=== PATIENT | male | born 1960 | race Caucasian/White ===

== ENCOUNTER 2022-09-29 09:22 | Day surgery (SDC) | payer OTHER ==
[~2022-09-29] VITALS: Ht 188 cm; Wt 96.1 kg
[2022-09-29] MEDS ORDERED: TRAZ50 (09:37)
--- NOTE | 2022-09-29 17:01 | NUR ---
09/29/22 Rafael Carney WHEN HOOKED UP TO EKG LEADS, PRIOR TO THE PROCEDURE, PT WAS FOUND TO BE IN A-FIB. DR SANABRIA WAS CONSULTED AND REMAINED PRESENT THROUGHOUT THE PROCEDURE ADMINSTERING MEDICATION FOR SEDATION.
== END 2022-09-29 12:46 | disposition home or self-care (01) ==
LOC: ORSCSDS 09:22
PROVIDERS: Internal Medicine Gastroenterology
PROC: 0DBL8ZX Excision of Transverse Colon, Via Natural or Artificial Opening Endoscopic, Diagnostic (ICD-10-PCS; principal; 2022-09-29 10:45)
PROC: 0DBK8ZX Excision of Ascending Colon, Via Natural or Artificial Opening Endoscopic, Diagnostic (ICD-10-PCS; principal; 2022-09-29 10:45)
PROC: 0DBM8ZX Excision of Descending Colon, Via Natural or Artificial Opening Endoscopic, Diagnostic (ICD-10-PCS; principal; 2022-09-29 10:45)
DX: Z12.11 Encounter for screening for malignant neoplasm of colon (principal); D12.2 Benign neoplasm of ascending colon; D12.3 Benign neoplasm of transverse colon; D12.4 Benign neoplasm of descending colon; K57.30 Diverticulosis of large intestine without perforation or abscess without bleeding; K64.4 Residual hemorrhoidal skin tags; I48.0 Paroxysmal atrial fibrillation
CPT/HCPCS: 88305; 93005; 93010; J2250; J2370; J2704; J7120

== ENCOUNTER 2023-05-08 05:51 | Day surgery (SDC) | payer OTHER ==
[~2023-05-08 05:51] MED LIST: ALDACTONE25 MG PO; Amiodarone HCl200 MG PO; DIGOX125 MC1 PO; DIGOX250 MCG PO; ELIQUIS5 M2 PO; ENTRESTO 24 MG1 EACH PO; FURO20 PO; K-TAB ER20 ME1 PO; METO25ER PO; TRAZ50 PO
[2023-05-08 06:37] VITALS: BP 119/86
[2023-05-08 06:45] VITALS: BP 127/80
[2023-05-08 07:00] VITALS: BP 138/95
[2023-05-08 07:24] VITALS: BP 122/81
[2023-05-08 07:27] VITALS: BP 125/78
--- NOTE | 2023-05-08 07:28 | NUR ---
PT AWAKE AND VERBALIZING WELL. SB 45-55BPM. IV REMOVED. PT AND VERBALIZED UNDERSTANDING OF WRITTEN AND VERBAL D/C INST.
== END 2023-05-08 11:09 | disposition home or self-care (01) ==
LOC: MHTC 05:51
DX: I48.19 Other persistent atrial fibrillation (principal); I50.20 Unspecified systolic (congestive) heart failure; I11.0 Hypertensive heart disease with heart failure; I50.22 Chronic systolic (congestive) heart failure; I51.3 Intracardiac thrombosis, not elsewhere classified; Z86.16 Personal history of COVID-19; E78.5 Hyperlipidemia, unspecified; D69.6 Thrombocytopenia, unspecified
CPT/HCPCS: 92960; 93005; 93010; J2704; J7030

== ENCOUNTER 2023-06-12 21:48 | Inpatient (IN) | payer OTHER ==
[~2023-06-12] VITALS: Ht 188 cm; Wt 88.6 kg
[~2023-06-12 21:48] MED LIST changes: +TRAZ150T57 PO; -TRAZ50 PO
[2023-06-12] MEDS ORDERED: ENTRESTO 24 MG1 EAC3 PO (22:26)
[2023-06-12] MEDS ORDERED: FARXIGA10 MG PO (22:26)
[2023-06-12 22:28] LABS: BASOPHILS ABSOLUTE AUTO 0.04 K/mm3 (0.00-0.23); BASOPHILS PERCENT AUTO 1 % (0-2); EOSINOPHILS ABSOLUTE AUTO 0.12 K/mm3 (0.00-0.68); EOSINOPHILS PERCENT AUTO 2 % (0-6); Hematocrit 42.5 % (37.0-53.0); Hemoglobin 14.6 g/dL (13.5-17.5); IMMATURE GRAN ABSOLUTE AUTO 0.03 K/mm3 (0.00-0.10); IMMATURE GRAN PERCENT AUTO 0 % (0-1); LYMPHOCYTES PERCENT AUTO 19 % (21-46); MONOCYTES ABSOLUTE AUTO 0.71 K/mm3 (0.16-1.47); MONOCYTES PERCENT AUTO 11 % (4-13); Mean Corpuscular HGB 30.8 pg (26.0-34.0); Mean Corpuscular HGB Conc 34.4 g/dL (31.5-36.5); Mean Corpuscular Volume 90 fL (80-100); Mean Platelet Volume 10.6 fL (9.1-12.4); NEUTROPHILS ABSOLUTE AUTO 4.56 K/mm3 (1.96-9.15); NEUTROPHILS PERCENT AUTO 68 % (41-73); Platelet Count 170 K/mm3 (150-400); RDW Coefficient Variation 12.6 % (11.7-14.2); RDW Standard Deviation 41.5 fL (35.1-46.3); Red Blood Cell Count 4.74 M/mm3 (4.30-5.90); White Blood Cell Count 6.76 K/mm3 (4.00-11.30)
[2023-06-12 22:44] LABS: Albumin, Blood 3.7 g/dL (3.4-5.0); Albumin/Globulin Ratio 1.1 (0.8-1.8); Bilirubin, Total 0.4 mg/dL (0.1-1.0); Bun/Creatinine Ratio 17.8 (12.0-20.0); Calcium, Blood 8.6 mg/dL (8.5-10.1); Creatinine, Blood 1.07 mg/dL (0.60-1.20); Globulin, Blood 3.4 g/dL (2.2-4.0); Total Protein, Blood 7.1 g/dL (6.4-8.2)
[2023-06-13] VITALS (19 sets, daily range): BP systolic 116–153; BP diastolic 72–96
[2023-06-13] MEDS ORDERED: AMIODARONE HCL100 M1 PO (02:12)
[2023-06-13] MEDS ORDERED: ENTRESTO 24 MG1 EACH PO (02:15)
--- NOTE | 2023-06-13 03:37 | NUR ---
ADMIT NOTE ADMITTED 62 YR OLD MALE FROM THE ED WITH DX OF CHOLECYSTITIS. NPO FOR POSSIBLE CHOLECYSTECTOMY IN THE AM. ALERT AND ORIENTED X 4. HAD RECEIVED DILAUDID IN THE ED, RECEIVED ANOTHER DOSE WHEN HE CAME TO THE FLOOR. UP AD LASHA. IVF OF NS INFUSING, ANTIBIOTICS SCHEDULED - SEE MAR FOR DETAILS. ORIENTED TO USE OF CALL LIGHT. WILL CONTINUE TO MONITOR
--- NOTE | 2023-06-13 03:50 | NUR ---
SCENE PAINTER SUMMARY BP ELEVATED, OTHERWISE VSS. WAS ADMITTED THIS SHIFT WITH DX OF CHOLECYSTITIS. NPO FOR POSSIBLE CHOLECYSTECTOMY IN THE AM. RECEIVING IV DILAUDID FOR PAIN AND ZOFRAN FOR NAUSEA. SEE MAR FOR DETAILS. IVF OF NS INFUSING WITH ANTIBIOTICS ABOUT LARISSA 6 HRS. CURRENTLY RESTING QUIETLY, UP AD LASHA NEEDED. ORIENTED TO USE OF CALL LIGHT, CALL LIGHT IN REACH. WILL CONTINUE TO MONITOR
[2023-06-13] MEDS ORDERED: DIGOX125 MC1 PO (04:24)
[2023-06-13] MEDS ORDERED: FUROSEMIDE40 MG PO (04:25)
[2023-06-13] MEDS ORDERED: METOPROLOL SUCC25 MG PO (04:25)
[2023-06-13 04:56] LABS: BASOPHILS ABSOLUTE AUTO 0.02 K/mm3 (0.00-0.23); BASOPHILS PERCENT AUTO 0 % (0-2); EOSINOPHILS ABSOLUTE AUTO 0.03 K/mm3 (0.00-0.68); EOSINOPHILS PERCENT AUTO 0 % (0-6); Hematocrit 44.3 % (37.0-53.0); IMMATURE GRAN ABSOLUTE AUTO 0.03 K/mm3 (0.00-0.10); IMMATURE GRAN PERCENT AUTO 0 % (0-1); LYMPHOCYTES ABSOLUTE AUTO 0.95 K/mm3 (0.84-5.20); LYMPHOCYTES PERCENT AUTO 9 % (21-46); MONOCYTES PERCENT AUTO 9 % (4-13); Mean Corpuscular HGB 30.7 pg (26.0-34.0); Mean Corpuscular HGB Conc 33.9 g/dL (31.5-36.5); Mean Corpuscular Volume 91 fL (80-100); Mean Platelet Volume 10.7 fL (9.1-12.4); NEUTROPHILS ABSOLUTE AUTO 9.02 K/mm3 (1.96-9.15); NEUTROPHILS PERCENT AUTO 82 % (41-73); Platelet Count 175 K/mm3 (150-400); RDW Coefficient Variation 12.5 % (11.7-14.2); RDW Standard Deviation 41.4 fL (35.1-46.3); Red Blood Cell Count 4.89 M/mm3 (4.30-5.90); White Blood Cell Count 11.05 K/mm3 (4.00-11.30)
[2023-06-13 06:51] LABS: Albumin, Blood 3.7 g/dL (3.4-5.0); Albumin/Globulin Ratio 1.2 (0.8-1.8); Bilirubin, Total 1.4 mg/dL (0.1-1.0); Calcium, Blood 8.5 mg/dL (8.5-10.1); Globulin, Blood 3.1 g/dL (2.2-4.0); Total Protein, Blood 6.8 g/dL (6.4-8.2)
--- NOTE | 2023-06-13 12:15 | NUR ---
Into sds via [employer]. Pt a&ox4-reports 7/10 pain to epigastric area and radiating to the right upper quadrant. Pt denies nausea. NPO status confirmed. History, Chart, Medications and Allergies reviewed before start of procedure.Lungs clear T/O to Auscultation.Heart sounds regular-S1,S2 no murmur.Surgical site prepped with 2% Chlorhexidine cloth wipe x 2.
--- NOTE | 2023-06-13 12:31 | NUR ---
#20 PIV to right forearm c/d/i-flushes well.
[2023-06-13 14:08] LABS: Potassium, Blood 4.4 mmol/L (3.5-5.5)
[2023-06-13 14:27] LABS: Potassium, Blood 3.9 mmol/L (3.5-5.5)
--- NOTE | 2023-06-13 18:15 | NUR ---
SHIFT SUMMARY PATIENT ALERT AND INTERACTIVE. PATIENT UP IN ROOM INDEPENDENTLY PERIODICALLY. PATIENT EDUCATED ON FALL RISK AND SAFETY. PATIENT TO OR THIS AFTERNOON FOR RUPTURED GALLBLADDER. PATIENT RETURNED FROM OR WITH GAYATRI DRAIN AND MULTIPLE SMALL DRESSINGS OVER ABD. GAYATRI SITE LEAKING SEROUS FLUID AT INSERTION. DR. ROLLE AWARE OF LEAKING. SITE REINFORCED. PATIENT AMBULATING IN ROOM AFTER SURGERY. USING HEATING PAD TO HELP WITH PAIN. RE EDUCATED PATIENT ABOUT SAFETY AND FALL RISK. PATIENT DRESSED SELF BACK INTO JEANS AFTER SURGERY. PATIENT HAD GAYATRI IN POCKET AND HEART MONITOR IN BACK POCKET. ENCOURAGED PATIENT TO HAVE BRING SWEATS OR SHORTS TO PREVENT SHEARING TO GAYATIR OR DISLODGING IT.
--- NOTE | 2023-06-13 19:10 | NUR ---
RECEIVED BEDSIDE REPORT FROM DAY SHIFT RN. PT IN BED. NO NEEDS AT THIS TIME. WILL CONTINUE TO PROVIDE CARE T/O SHIFT. CALL LT IN REACH.
--- NOTE | 2023-06-13 20:00 | NUR ---
PT AWAKE IN ROOM. WILL BRING IN SOME SWEAT PANTS FOR PT TO CHANGE INTO. NO NEEDS AT THIS TIME. CALL LT IN REACH.
--- NOTE | 2023-06-14 | NUR ---
PT RESTING QUIETLY. CALL LT IN REACH. IVF INFUSING.
--- NOTE | 2023-06-14 01:58 | NUR ---
PT RESTING QUIETLY. CALL LT IN REACH.
--- NOTE | 2023-06-14 04:00 | NUR ---
PT RESTING QUIETLY. REQUESTED NOT TO BE WOKE UP FOR A WHILE SO HE COULD GET SOME REST. NO NEEDS. CALL LT IN REACH.
--- NOTE | 2023-06-14 04:24 | NUR ---
SHIFT SUMMARY: MEDICATED PT WITH 0.5MG IV DILAUDID SEVERAL TIMES DURING THE SHIFT. PT ALSO TRIED 2 TABS OF NORCO WITH VERY LITTLE PAIN RELIEF. DILAUDID OFFERS MORE PAIN RELIEF. NO REPORTED NAUSEA. IS UP INDEP TO THE BATHROOM. GAYATRI DRAIN IS PATENT DRAINING DARK PINK FLUID. NO COMPLAINTS OF SOB. SINUS RHYTHM AT 62 ON TELE. HEATING PAD HELPS EASE THE PAIN IN HIS ABDOMEN. NS AT 75 MLS/HR INFUSING WITHOUT DIFFICULTY. WILL CONTINUE TO PROVIDE CARE UNTIL SHIFT REPORT TO ONCOMING NURSE. CALL LT IN REACH.
[2023-06-14 05:19] VITALS: BP 110/70
[2023-06-14 05:19] LABS: BASOPHILS ABSOLUTE AUTO 0.01 K/mm3 (0.00-0.23); BASOPHILS PERCENT AUTO 0 % (0-2); EOSINOPHILS PERCENT AUTO 0 % (0-6); Hematocrit 39.1 % (37.0-53.0); Hemoglobin 13.2 g/dL (13.5-17.5); IMMATURE GRAN ABSOLUTE AUTO 0.03 K/mm3 (0.00-0.10); IMMATURE GRAN PERCENT AUTO 0 % (0-1); LYMPHOCYTES ABSOLUTE AUTO 0.63 K/mm3 (0.84-5.20); LYMPHOCYTES PERCENT AUTO 7 % (21-46); MONOCYTES ABSOLUTE AUTO 0.47 K/mm3 (0.16-1.47); MONOCYTES PERCENT AUTO 5 % (4-13); Mean Corpuscular HGB 31.3 pg (26.0-34.0); Mean Corpuscular HGB Conc 33.8 g/dL (31.5-36.5); Mean Corpuscular Volume 93 fL (80-100); Mean Platelet Volume 10.9 fL (9.1-12.4); NEUTROPHILS ABSOLUTE AUTO 8.21 K/mm3 (1.96-9.15); NEUTROPHILS PERCENT AUTO 88 % (41-73); Platelet Count 147 K/mm3 (150-400); RDW Coefficient Variation 12.8 % (11.7-14.2); RDW Standard Deviation 43.2 fL (35.1-46.3); Red Blood Cell Count 4.22 M/mm3 (4.30-5.90); White Blood Cell Count 9.35 K/mm3 (4.00-11.30)
[2023-06-14 05:54] LABS: Magnesium, Blood 2.3 mg/dL (1.6-2.4)
[2023-06-14 05:55] LABS: Albumin, Blood 2.8 g/dL (3.4-5.0); Albumin/Globulin Ratio 0.9 (0.8-1.8); Bilirubin, Total 1.3 mg/dL (0.1-1.0); Calcium, Blood 7.8 mg/dL (8.5-10.1); Globulin, Blood 3.1 g/dL (2.2-4.0); Potassium, Blood 4.5 mmol/L (3.5-5.5); Total Protein, Blood 5.9 g/dL (6.4-8.2)
--- NOTE | 2023-06-14 06:12 | NUR ---
PT SITTING ON SIDE OF BED DRINKING A CUP OF COFFEE. NO NEEDS AT THIS TIME. CALL LT IN REACH.
[2023-06-14 07:31] VITALS: BP 142/85
[2023-06-14 14:26] VITALS: BP 120/69
--- NOTE | 2023-06-14 17:30 | NUR ---
SHIFT SUMMARY PT AOX4, INDEPENDENT IN THE ROOM. JPORT DRAIN OUTPUT DOCUMENTED IN THE CHART. PT MEDICATED FOR PAIN PER THE EMAR. NO OTHER COMPLAINTS. PT'S IS AT THE BS. HE CALLS WELL AND MAKES HIS NEEDS KNOWN. CALL LIGHT WITHIN REACH, BED IN THE LOWEST POSITION. WILL REPORT TO ONCOMING NURSE.
[2023-06-14 19:12] VITALS: BP 97/62
--- NOTE | 2023-06-15 01:55 | NUR ---
A/O ABD PAIN CONSTANT TREATED PER NOV. CONT MONITORIN
[2023-06-15 04:21] VITALS: BP 130/74
[2023-06-15 05:11] LABS: BASOPHILS ABSOLUTE AUTO 0.01 K/mm3 (0.00-0.23); BASOPHILS PERCENT AUTO 0 % (0-2); EOSINOPHILS ABSOLUTE AUTO 0.07 K/mm3 (0.00-0.68); EOSINOPHILS PERCENT AUTO 1 % (0-6); Hematocrit 40.2 % (37.0-53.0); Hemoglobin 13.5 g/dL (13.5-17.5); IMMATURE GRAN ABSOLUTE AUTO 0.02 K/mm3 (0.00-0.10); IMMATURE GRAN PERCENT AUTO 0 % (0-1); LYMPHOCYTES ABSOLUTE AUTO 1.35 K/mm3 (0.84-5.20); LYMPHOCYTES PERCENT AUTO 16 % (21-46); MONOCYTES ABSOLUTE AUTO 0.81 K/mm3 (0.16-1.47); MONOCYTES PERCENT AUTO 10 % (4-13); Mean Corpuscular HGB 31.3 pg (26.0-34.0); Mean Corpuscular HGB Conc 33.6 g/dL (31.5-36.5); Mean Corpuscular Volume 93 fL (80-100); Mean Platelet Volume 11.1 fL (9.1-12.4); NEUTROPHILS ABSOLUTE AUTO 6.17 K/mm3 (1.96-9.15); NEUTROPHILS PERCENT AUTO 73 % (41-73); Platelet Count 146 K/mm3 (150-400); RDW Coefficient Variation 12.6 % (11.7-14.2); RDW Standard Deviation 43.3 fL (35.1-46.3); Red Blood Cell Count 4.32 M/mm3 (4.30-5.90); White Blood Cell Count 8.43 K/mm3 (4.00-11.30)
[2023-06-15 05:35] LABS: Albumin, Blood 2.9 g/dL (3.4-5.0); Albumin/Globulin Ratio 0.8 (0.8-1.8); Bilirubin, Total 0.8 mg/dL (0.1-1.0); Bun/Creatinine Ratio 12.6 (12.0-20.0); Calcium, Blood 8.2 mg/dL (8.5-10.1); Creatinine, Blood 1.11 mg/dL (0.60-1.20); Globulin, Blood 3.5 g/dL (2.2-4.0); Potassium, Blood 3.9 mmol/L (3.5-5.5); Total Protein, Blood 6.4 g/dL (6.4-8.2)
[2023-06-15 07:43] VITALS: BP 116/71
[2023-06-15] MEDS ORDERED: ACET500 PO (08:20)
--- NOTE | 2023-06-15 11:33 | NUR ---
Surgeon saw patient this morning and removed GAYATRI drain. Lap sites CDI. Medically stable for discharge. Reviewed discharge teaching, left unit at 0830.
== END 2023-06-15 08:34 | disposition home or self-care (01) | DRG 418 ==
LOC: ER 21:48 → MEDS 06-13 01:43
PROVIDERS: Emergency Medicine; Family Medicine; Surgery; ADMIT Internal Medicine
PROC: BF10YZZ Fluoroscopy of Bile Ducts using Other Contrast (ICD-10-PCS; 2023-06-13)
PROC: 0FT44ZZ Resection of Gallbladder, Percutaneous Endoscopic Approach (ICD-10-PCS; principal; 2023-06-13 10:00)
DX: K81.0 Acute cholecystitis (principal); I50.20 Unspecified systolic (congestive) heart failure; I48.91 Unspecified atrial fibrillation; Z79.01 Long term (current) use of anticoagulants; Z79.899 Other long term (current) drug therapy; Z86.718 Personal history of other venous thrombosis and embolism; Z98.890 Other specified postprocedural states
CPT/HCPCS: 36415; 71046; 74177; 74300; 80053; 83690; 83735; 84484; 85025; 86850; 86900; 86901; 88304; 93005; 93010; 96374; 96375; 96376; 99285-25; A9270; J1170; J2250; J2270; J2405; J2543; J7030; J7120; Q9967

== ENCOUNTER → 2025-08-06 | Outpatient (CLI) | payer BC ==
[~2025-08-06] MED LIST changes: +ACET500 PO; +AMIODARONE HCL100 M1 PO; +ENTRESTO 24 MG1 EAC3 PO; +FARXIGA10 MG PO; +FUROSEMIDE40 MG PO; +METOPROLOL SUCC25 MG PO
== END ==
LOC: LAB SHORT 09:11 → LAB 09:11
DX: I50.9 Heart failure, unspecified (principal)
CPT/HCPCS: 83880